=== PATIENT | female | born 1975 | race Two or more races ===

== ENCOUNTER 2021-01-26 05:45 | Day surgery (SDC) | payer OTHER ==
[~2021-01-26 05:45] MED LIST: NORVASC5 MG PO
[2021-01-26] MEDS ORDERED: ULTRACET PO (09:14)
[2021-01-26] MEDS ORDERED: DUI500 PO (09:14)
== END 2021-01-26 11:00 | disposition home or self-care (01) ==
LOC: CIR.AMB 05:45
PROVIDERS: ATTEND Orthopaedic Surgery Sports Medicine
DX: M77.11 Lateral epicondylitis, right elbow (principal); Z20.822 Contact with and (suspected) exposure to COVID-19